=== PATIENT | female | born 1985 | race Caucasian/White ===

== ENCOUNTER 2019-09-05 10:59 | Observation (INO) | payer BC, OTHER ==
[2019-09-05 12:39] LABS: #Eosinphils 0.1 thou/uL (0.0-0.7); #Lymphocytes 1.7 thou/uL (1.20-3.40); #Neutrophils 6.8 thou/uL (1.40-6.50); %Basophils 0.4 % (0.0-1.0); %Eosinophils 0.5 % (0.0-10.0); %Lymphocytes 17.5 % (21.0-51.0); %Monocytes 10.4 % (0.0-10.0); %Neutrophils 71.2 % (42.0-75.0); Hemoglobin 12.5 g/dL (12.0-16.0); Mean Corpuscular HGB CONC 34.1 g/dL (32.0-36.0); Mean Corpuscular Hemoglobin 30.9 pg (27.0-31.0); Mean Corpuscular Volume 90.6 fL (78.0-98.0); Mean Platelet Volume 7.1 fL (7.4-10.4); Platelet Count 236 thou/uL (130-400); RBC Distribution Width 10.7 % (11.5-14.5); Red Blood Cell (RBC) Count 4.03 mill/uL (4.20-5.40); White Blood Cell (WBC) Count 9.6 thou/uL (4.8-10.8)
[2019-09-05] MEDS ORDERED: Cefepime 1 GM VIAL ONE (13:05)
[2019-09-05] MEDS ORDERED: SODIUM CHLORIDE 0.9% IVPB SCH (13:15)
[2019-09-05] MEDS ORDERED: Cefepime 1 GM in Sodium Chloride 0.9% 100 ML IVPB SCH (13:15)
[2019-09-05] MEDS ORDERED: VANCOMYCIN HCL IVPB SCH (13:15)
[2019-09-05 13:16] LABS: ALT (SGPT) 19 U/L (8-55); AST (SGOT) 11 U/L (5-34); Albumin 4.1 g/dL (3.5-5.0); Alkaline Phosphatase 79 U/L (40-110); Anion Gap 13 mmol/L (10-20); BUN (Urea Nitrogen) 8 mg/dL (7.0-18.7); Bilirubin, Total 0.9 mg/dL (0.2-1.2); Calc. Creatinine Clearance 0 mL/min (70-130); Calcium 8.8 mg/dL (7.8-10.44); Carbon Dioxide 23 mmol/L (22-29); Chloride 105 mmol/L (98-107); Estimated GFR-MDRD 82; Globulin 2.7 g/dL (2.4-3.5); Glucose 87 mg/dL (70-105); Potassium 4.1 mmol/L (3.5-5.1); Protein, Total 6.8 g/dL (6.0-8.3); Sodium 137 mmol/L (136-145)
--- NOTE | 2019-09-05 14:42 | CT ---
CT Facial Bones W Con History: chin pimple Comparison: None Findings: Small abscess within these subcutaneous fat is present with collection measuring up to 14 m m size. A sinus tract seen to the skin surface for metastasis decompressing. No underlying muscle involvement is appreciated. No osteomyelitis. No acute fracture of the face. No cervical adenopathy. Globes are normal. No retrobulbar hematoma. Reactive submental lymph nodes. Mild right submandibular soft tissue swelling. Impression: Small draining abscess in the subcutaneous fat extending along a sinus tract to the skin surface.
[2019-09-05] MEDS ORDERED: Iopamidol-370 76% 500 ML 1 ML ONE (15:23)
[2019-09-05] MEDS ORDERED: Acetaminophen 650 MG/20.3 ML UDCUP PO PRN (15:25)
[2019-09-05] MEDS ORDERED: Ondansetron ODT 4 MG TAB PO PRN (15:28)
[2019-09-05] MEDS ORDERED: Acetaminophen 325 MG TAB PO PRN (15:28)
[2019-09-05] MEDS ORDERED: Ketorolac Tromethamine 30 MG/ML VIAL IVP PRN (15:28)
[2019-09-05] MEDS ORDERED: Calcium Carbonate 500 MG ChewTAB PO PRN (15:28)
[2019-09-05] MEDS ORDERED: Ondansetron PF 4 MG/2 ML Vial IVP PRN (15:28)
--- NOTE | 2019-09-05 16:30 | PDOC.HHP ---
Hospitalist HPI - History of Present Illness Facial swelling History of Present Illness: PCP: DEREK The patient is a 33/F with PMH of Factor 5 syndrome that presents to the ER with the above complaint. The patient reports that she developed an "under the skin pimple" on , approximately 6 days ago. Over the next several days, the pimple became more painful and enlarged, extending from her chin, down her anterior neck. Her spouse "popped it" and drained blood and pus several times over the weekend. She also treated with ice packs. Tuesday it became larger and more painful, so she went to the ER and was given prescription for Augmentin, Bactrim and Tylenol#3. She took 3 doses of each antibiotic without any resolution symptoms. She reports the abscess actually has gotten bigger and more painful. She is still able to drain pus and blood. Compounding the problem, she believes she had allergic reaction to Codeine, stating that she felt "an out of body experience" while taking the medication. Her mother has similar reaction to codeine and instructed her to take some antihistamines. The patient reports that her symptoms completely resolved 30 minutes after taking the antihistamine. She denies any fever, but reports feeling intermittent chills. She reports odynophagia, but denies dysphagia. She has been drinking fluids. Denies any difficulty breathing. Has no other complaints at this time. ED Course: VS BP: 136/74, Pulse: 104, Resp: 18, Temp: 98.3 (Oral), Pain: 9, O2 sat: 100 on (Room Air) CT facial showed small draining abscess in the subcutaneous fat extending along sinus tract to the skin surface. WBC 9.6 Given 1L NS Vanc and cefepime IVPB Hospitalist ROS - Review of Systems Constitutional: reports: chills, malaise. denies: fever Eyes: denies: pain, vision change, conjunctivae inflammation, eyelid inflammation, redness, other ENT: denies: ear pain, ear discharge, nose discharge Respiratory: denies: cough, dry, shortness of breath, hemoptysis, SOB with excertion, pleuritic pain, sputum, wheezing, other Cardiovascular: denies: chest pain, palpitations, orthopnea, paroxysmal noc. dyspnea, edema, light headedness, other Gastrointestinal: reports: nausea. denies: vomiting, abdominal pain, diarrhea, constipation, melena, hematochezia Genitourinary: denies: dysuria, frequency, incontinence, hematuria, retention, other Musculoskeletal: reports: neck pain Skin: reports: lesions (abscess to chin/neck) Neurological: denies: weakness, numbness, incoordination, change in speech, confusion, seizures, other Hospitalist History - Past Medical History Source: patient, family Cardiac: reports: no pertinent history Pulmonary: reports: no pertinent history [employer]ES P[employer]: reports: no pertinent history Gastrointestinal: reports: no pertinent history Heme/Onc: reports: no pertinent history Hepatobiliary: reports: no pertinent history Psych: reports: no pertinent history Musculoskeletal: reports: no pertinent history 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) Infectious Disease: reports: no pertinent history ENT: reports: no pertinent history Renal/: reports: no pertinent history Endocrine: reports: no pertinent history Dermatology: reports: no pertinent history Other Medical History: Pre Eclampsia - Past Surgical History Past Surgical History: reports: - Family History Family History: reports: no pertinent history Other Family History: non contributory for cardiac, pulmonary - Social History Smoking Status: Never smoker Alcohol: reports: None Drugs: reports: none Living Situation: With Family Occupation: Lives with spouse Activity level: independent ambulation - Exam General Appearance: NAD, awake alert Eye: anicteric sclera ENT: normocephalic atraumatic, moist mucosa Neck: no JVD, no thyromegaly Neck - other findings: swelling with fluctuance to chin/neck Heart: RRR, no murmur, no gallops, no rubs, normal peripheral pulses Respiratory: CTAB, no wheezes, no rales, no ronchi Gastrointestinal: soft, non-tender, non-distended, normal bowel sounds, no guarding, no rigidity Extremities: no cyanosis, no edema Skin: normal turgor Neurological: cranial nerve grossly intact, no focal deficits Musculoskeletal: normal tone, normal strength Psychiatric: normal affect, A&O x 3 Hospitalist Results - Labs Result Diagrams: 09/05/19 12:27 09/05/19 12:27 Lab results: WBC 9.6 thou/uL (4.8-10.8) 09/05/19 12:27 Hgb 12.5 g/dL (12.0-16.0) 09/05/19 12:27 Hct 36.6 % (36.0-47.0) 09/05/19 12:27 MCV 90.6 fL (78.0-98.0) 09/05/19 12:27 Plt Count 236 thou/uL (130-400) 09/05/19 12:27 Neutrophils % 71.2 % (42.0-75.0) 09/05/19 12:27 Sodium 137 mmol/L (136-145) 09/05/19 12:27 Potassium 4.1 mmol/L (3.5-5.1) 09/05/19 12:27 Chloride 105 mmol/L (98-107) 09/05/19 12:27 Carbon Dioxide 23 mmol/L (22-29) 09/05/19 12:27 BUN 8 mg/dL (7.0-18.7) 09/05/19 12:27 Creatinine 0.81 mg/dL (0.6-1.1) 09/05/19 12:27 Glucose 87 mg/dL (70-105) 09/05/19 12:27 Calcium 8.8 mg/dL (7.8-10.44) 09/05/19 12:27 Total Bilirubin 0.9 mg/dL (0.2-1.2) 09/05/19 12:27 AST 11 U/L (5-34) 09/05/19 12:27 ALT 19 U/L (8-55) 09/05/19 12:27 Alkaline Phosphatase 79 U/L (40-110) 09/05/19 12:27 Serum Total Protein 6.8 g/dL (6.0-8.3) 09/05/19 12:27 Albumin 4.1 g/dL (3.5-5.0) 09/05/19 12:27 - Radiology Interpretation CT scan - head Status: report reviewed by sd Hospitalist H&P A/P - Problem (1) Abscess of chin Code(s): L02.01 - CUTANEOUS ABSCESS OF FACE Status: Acute Assessment and Plan: Admit to medical floor, observation status. Continue Vancomycin and start Rocephin IV IV fluids Blood cultures pending Consult wound care Order ESR/CRP (2) Failure of outpatient treatment Code(s): Z78.9 - OTHER SPECIFIED HEALTH STATUS Status: Acute Assessment and Plan: Stop oral antibiotics Start IV rocephin and Vancomycin (3) Factor 5 Leiden mutation, heterozygous Code(s): D68.51 - ACTIVATED PROTEIN C RESISTANCE Status: Chronic - Plan Plan: CBC, CMP in am SCDs prophylaxis Full Code Yael Aceves, mother, contact @ [phone]
[2019-09-05 17:05] VITALS: BMI 27.9
[2019-09-05 17:21] LABS: BHCG - Serum Negative (NEGATIVE); Pregs Control Background? CLEAR/WHITE (CLR/WHITE); Pregs Control Bar Appear? YES (CONTROL BAR)
[2019-09-05] MEDS ORDERED: cefTRIAXone\\ROCEPHIN 2 GM in Sodium Chloride 0.9% 100 ML IVPB SCH (18:00)
[2019-09-05] MEDS: Sodium Chloride 0.9% 1,000 ML IV SCH (18:27)
[2019-09-05] MEDS: Vancomycin 1.5 GRAM/300 ML BAG 1.5 GM in Premix Bag 1 BAG IVPB SCH (22:20)
[2019-09-05] MEDS ORDERED: Fentanyl 100 MCG/2 ML VIAL SLOW IVP PRN (23:14)
[2019-09-05] MEDS ORDERED: Meropenem 1 GM in Sodium Chloride 0.9% 100 ML IVPB SCH (23:15)
--- NOTE | 2019-09-05 23:22 | PDOC.EVN ---
Event Note - Event Note Event Note: Patient seen and examined for facial cellulitis/abscess. Pain controlled. Vitals reviewed. o/e fluctuance noted, Lungs CTA b/l, Heart S1S2 +, Labs reviewed. I agree with the note by Gagan Enrique. Facial cellulitis/Abscess - failed outpt Rx Factor V Leiden mutation CKD 2 Codeine allergy PLAN: IV Vancomycin IV Meropenem Monitor Vancomycin level NPO past MN Consult Oral surgery in AM Toradol/Fentanyl PRN for pain
[2019-09-06] MEDS: MEROPENEM 1 GM/50 ML 1 GM in Premix Bag 1 BAG IVPB SCH ×3 (00:10→18:26)
[2019-09-06] MEDS: Vancomycin 1.5 GRAM/300 ML BAG 1.5 GM in Premix Bag 1 BAG IVPB SCH ×2 (06:15→14:56)
[2019-09-06] MEDS: Sodium Chloride 0.9% 1,000 ML IV SCH ×2 (06:15→18:00)
[2019-09-06] MEDS ORDERED: FLU VACC QS2019-20(6MOS UP)/PF 60 MCG/0.5 ML SYRINGE IM ONE (09:00)
[2019-09-06] MEDS ORDERED: Saccharomyces boulardii 250 MG CAP PO SCH (09:00)
[2019-09-06] MEDS ORDERED: Glycopyrrolate 0.2 MG/ML 5 ML SYRINGE ONE (10:53)
[2019-09-06] MEDS ORDERED: Dexamethasone 20 MG/5 ML VIAL ONE (10:53)
[2019-09-06] MEDS ORDERED: Rocuronium Bromide 10 MG/ML (10ML VIAL) ONE (10:53)
[2019-09-06] MEDS ORDERED: Ondansetron PF 4 MG/2 ML Vial ONE (10:53)
[2019-09-06] MEDS ORDERED: PROPOFOL 200 MG/20 ML VIAL ONE (10:53)
[2019-09-06] MEDS ORDERED: Lidocaine 1% PF 5 ML VIAL ONE (10:53)
[2019-09-06] MEDS ORDERED: Ketorolac Tromethamine 30 MG/ML VIAL ONE (10:53)
[2019-09-06 14:23] LABS: Vancomycin, Trough 18.6 ug/mL
[2019-09-06] MEDS ORDERED: Sodium Chloride 0.9% 10 ML ONE (15:52)
[2019-09-06] MEDS ORDERED: Bacitracin Zinc Ointment 30 gm TUBE ONE (15:52)
[2019-09-06] MEDS ORDERED: Lidocaine 1% w/Epinephrine 1:100K 20 ML VIAL ONE (15:52)
[2019-09-06] MEDS ORDERED: Chlorhexidine Gluconate 15 ML UDCUP SSP ONE (15:52)
[2019-09-06] MEDS ORDERED: Fentanyl 100 MCG/2 ML VIAL ONE ×2 (16:14→17:59)
[2019-09-06] MEDS ORDERED: Promethazine HCl 25 MG/ML VIAL IM PRN (17:19)
[2019-09-06] MEDS ORDERED: Ondansetron HCl/PF 4 MG/2 ML Vial IVP PRN (17:19)
[2019-09-06] MEDS ORDERED: Promethazine HCl 25 MG/ML VIAL SLOW IVP PRN (17:19)
[2019-09-06 19:41] VITALS: BP 111/68; TEMP 97.5
--- NOTE | 2019-09-07 08:39 | DIS ---
DATE OF ADMISSION: 09/05/2019 DATE OF DISCHARGE: 09/06/2019 DISCHARGE DISPOSITION: Home. FOLLOWUP: 1. Follow up with primary care physician in 1 week. 2. Follow up with oral surgeon, Dr. Ray tomorrow at 1:00 p.m. HISTORY: The patient was seen and examined on the day of discharge. Denies any new complaints. No chest pain, shortness of breath, fever, or chills reported. BRIEF HOSPITAL COURSE: The patient is a 33-year-old female, who presented to the Emergency Room with swelling and redness around the chin. The swelling has been ongoing for last 6 days. She was on Augmentin along with Bactrim as outpatient. Please refer to the history and physical for further details. The patient was admitted to the hospital with a diagnosis of facial cellulitis with abscess. She had failed outpatient therapy. She was placed on IV vancomycin with meropenem. She was evaluated by Dr. Ray. An incision and drainage were performed in the OR. She has been cleared by Dr. Ray for discharge on clindamycin. She will follow up with Dr. Ray tomorrow. FINAL DIAGNOSES: 1. Facial cellulitis/abscess, failed outpatient therapy. 2. Chronic kidney disease, stage 2. 3. Acute pain secondary to facial cellulitis/abscess. 4. Codeine allergy. 5. History of factor V Leiden mutation. 6. Elevated CRP. The patient understands the above plan of care. Job ID: [id number]
--- NOTE | 2019-09-07 15:01 | OP ---
DATE OF PROCEDURE: 09/06/2019 PREOPERATIVE DIAGNOSIS: Submental fascial space infection. POSTOPERATIVE DIAGNOSIS: Submental fascial space infection. PROCEDURE PERFORMED: Incision and drainage with packing of submental space infection. FLUIDS: 1 L of LR. ESTIMATED BLOOD LOSS: Less than 5 mL. SPECIMENS: None. FINDINGS: Indurated areas of the submental region, minimal purulence appreciated. DISPOSITION: PACU and discharge home once criteria met. INDICATIONS FOR PROCEDURE: A 33-year-old female was met in the emergency department with complaints of progressive swelling of the submental region. The patient stated that she popped a pimple a few days ago and then noticed progressive swelling. The patient able to discharge purulence from a small pimple region along the chin. Discussed risks, benefits, indications, alternatives. The patient has already been on a multiple antibiotic course by Wayne Pressley with no noted improvement. Recommended for an incision and drainage with packing with Iodoform gauze in the operating room under local anesthesia. The patient elected to proceed with the recommended procedure. DESCRIPTION OF PROCEDURE: On the day of surgery, the patient was met in the preoperative holding area and transferred to operating room B. The patient was placed in the supine position on the operating room table, noted to be good candidate to undergo general anesthesia. She was connected to all the cardiopulmonary monitors and induced into a state of general anesthesia. An oral endotracheal tube was placed and secured by the anesthesia team. At this point , the patient was prepped and draped in a standard sterile fashion. Next, used 5 mL of 2% lidocaine with 1:100,000 epinephrine in the subcutaneous plane along the submental region. Identified the submental crease and made an 8 mm incision through skin down to subcutaneous tissue. Then using hemostats, we bluntly dissected along areas of induration up superiorly into the area for the etiology of the infection. Next, copious saline irrigation was performed. We then used Iodoform packing with a 1 g vancomycin paste applied to the packing. Packed the site. Packing was secured with Steri-Strips along the submental region extending about a centimeter from the incision site. Dressing was applied. Bacitracin was applied. At this point, the procedure was deemed complete. The patient was transferred to the PACU after extubation with spontaneous reflexes intact. Patient will be followed up as outpatient. Job ID: [id number] [facility]
[2019-09-10] MEDS ORDERED: Ibuprofen 200 MG TAB PO PRN (21:30)
== END 2019-09-06 21:13 | disposition home or self-care (01) ==
LOC: ERS 10:59 → 2SW 15:17
PROVIDERS: ADMIT Internal Medicine; ATTEND Internal Medicine
PROC: 0J910ZZ Drainage of Face Subcutaneous Tissue and Fascia, Open Approach (ICD-10-PCS; principal; 2019-09-06)
DX: L03.211 Cellulitis of face (principal); L02.01 Cutaneous abscess of face; B95.62 Methicillin resistant Staphylococcus aureus infection as the cause of diseases classified elsewhere; N18.2 Chronic kidney disease, stage 2 (mild); D68.51 Activated protein C resistance; Z79.2 Long term (current) use of antibiotics; Z88.5 Allergy status to narcotic agent
CPT/HCPCS: 36415; 70487; 80053; 80202; 84703; 85025; 85652; 86140; 87040; 87070; 87077; 87186; 87205; 90471; 90686; 96361; 96365; 96366; 96367; 96375; 96376; G0008; G0378; J0692; J0696; J1100; J1885; J2001; J2185; J2405; J2704; J3010; J3370; J3490; J7050; Q9967

== ENCOUNTER 2020-04-30 07:58 | Emergency (ER) | payer BC, OTHER | END 2020-04-30 09:18 | disposition home or self-care (01) | LOC: ERS 07:58 | DX: L08.89 Other specified local infections of the skin and subcutaneous tissue (principal); B95.8 Unspecified staphylococcus as the cause of diseases classified elsewhere; F41.9 Anxiety disorder, unspecified; F32.9 Major depressive disorder, single episode, unspecified; F43.10 Post-traumatic stress disorder, unspecified | CPT/HCPCS: 99283 ==